=== PATIENT | female | born 1990 | race Caucasian/White ===

== ENCOUNTER 2017-03-13 23:01 | Emergency (ER) | payer MEDICAID ==
[~2017-03-13 23:01] MED LIST: ALDOMET250 MG PO
== END 2017-03-14 01:07 | disposition home or self-care (01) ==
LOC: D.ER 23:01
DX: R51 Headache (principal); I10 Essential (primary) hypertension

== ENCOUNTER 2017-03-29 16:03 | Emergency (ER) | payer MEDICAID | END 2017-03-29 18:00 | disposition home or self-care (01) | LOC: D.ER 16:03 | DX: S93.402A Sprain of unspecified ligament of left ankle, initial encounter (principal); X58.XXXA Exposure to other specified factors, initial encounter; Y93.89 Activity, other specified; Y92.029 Unspecified place in mobile home as the place of occurrence of the external cause ==

== ENCOUNTER 2017-11-19 14:55 | Emergency (ER) | payer MEDICAID ==
[2017-11-19 15:00] VITALS: Ht 162.6 cm
[2017-11-19] MEDS ORDERED: ZOLOFT50 MG PO (15:02)
[2017-11-19 15:41] LABS: APPEARANCE CLEAR (CLEAR); BILIRUBIN NEGATIVE (NEGATIVE); COLOR YELLOW (YELLOW); GLUCOSE NEGATIVE (NEGATIVE); KETONE NEGATIVE (NEGATIVE); NITRITE NEGATIVE (NEGATIVE); PROTEIN NEGATIVE (NEGATIVE); UROBILINOGEN NORMAL (NORMAL)
[2017-11-19 16:35] VITALS: BP 122/64
== END 2017-11-19 16:39 | disposition home or self-care (01) ==
LOC: D.ER 14:55
PROVIDERS: Family Medicine
DX: R11.0 Nausea (principal); X30.XXXA Exposure to excessive natural heat, initial encounter; Y93.89 Activity, other specified; Y92.89 Other specified places as the place of occurrence of the external cause

== ENCOUNTER 2018-01-28 11:03 | Emergency (ER) | payer MEDICAID ==
[~2018-01-28] VITALS: Ht 162.6 cm; Wt 90.9 kg
[~2018-01-28 11:03] MED LIST changes: +ZOLOFT50 MG PO
[2018-01-28 11:06] VITALS: Ht 162.6 cm; Wt 90.9 kg
[2018-01-28 13:15] LABS: APPEARANCE HAZY (CLEAR); BACTERIA FEW /hpf (NONE SEEN); BILIRUBIN NEGATIVE (NEGATIVE); COLOR YELL (YELLOW); EPITHELIAL CELLS 0-5 /hpf (0-5); GLUCOSE NEGATIVE (NEGATIVE); KETONE NEGATIVE (NEGATIVE); NITRITE NEGATIVE (NEGATIVE); PROTEIN TRACE mg/dL (NEGATIVE); RED CELLS - URINE OCC /hpf (0-5); SPECIFIC GRAVITY 1.005 (1.005-1.020); UROBILINOGEN NORMAL (NORMAL); WHITE CELLS - URINE OCC /hpf (0-5)
[2018-01-28] MEDS ORDERED: TORADOL10 MG PO (13:22)
[2018-01-28 13:39] VITALS: BP 137/93
== END 2018-01-28 13:37 | disposition home or self-care (01) ==
LOC: D.ER 11:03
PROVIDERS: Emergency Medicine
DX: M25.562 Pain in left knee (principal); R05 Cough